=== PATIENT | female | born 1960 | race Caucasian/White ===

== ENCOUNTER → 2020-06-15 | Outpatient (CLI) | payer BC ==
[2020-06-15 22:30] LABS: Basophils # (A) 0.03 X 10*3/uL (0.00-0.10); Basophils % (A) 0.6 %; Eosinophils # (A) 0.08 X 10*3/uL (0.04-0.35); Eosinophils % (A) 1.6 %; HCT 41.3 % (37.2-46.3); HGB 12.8 g/dL (12.0-15.0); Lymphocytes # (A) 1.48 X 10*3/uL (0.90-5.00); Lymphocytes % (A) 30.4 %; MCH 28.6 pg (27.0-32.0); MCV 92.4 fL (80.0-97.0); Mean Platelet Volume 10.2 fL (9.5-12.2); Monocytes # (A) 0.51 X 10*3/uL (0.20-1.00); Monocytes % (A) 10.5 %; Neutrophils # (A) 2.76 X 10*3/uL (1.80-7.70); Neutrophils % (A) 56.7 %; Platelet Count 345 X 10*3/uL (140-440); RBC 4.47 X 10*6/uL (4.10-5.20); RDW 14.2 % (11.5-14.5); WBC 4.87 X 10*3/uL (4.50-10.00)
[2020-06-15 23:58] LABS: Erythrocyte Sedimentation Rate 33 mm/Hr (0-30)
[2020-06-16 01:52] LABS: African American GFR (CKD) 72.4 (60.0-200.0); C Reactive Protein 1.1 mg/dL (0.0-0.8); Non-African American GFR(CKD) 62.5 (60.0-200.0)
== END | disposition home or self-care (01) ==
LOC: LABWHC1 12:45
PROVIDERS: ATTEND Internal Medicine Rheumatology
DX: M05.79 Rheumatoid arthritis with rheumatoid factor of multiple sites without organ or systems involvement (principal)
CPT/HCPCS: 36415; 82565; 84450; 84460; 84520; 85025; 85652; 86140

== ENCOUNTER → 2020-06-23 | Outpatient (CLI) | payer BC ==
--- NOTE | 2020-06-23 17:47 | BD ---
EXAMINATION TYPE: Axial Bone Density DATE OF EXAM: 06/23/2020 COMPARISON: NONE CLINICAL HISTORY: 59 YR OLD FEMALE....ICD-10 CODE: Z78.0 POST MENOPAUSAL Height: 63 Weight: 230 FRAX RISK QUESTIONS: Current Tobacco Use: NOT TOBACCO, MARIJUANA RA RISK FACTORS HISTORY OF: Family History of Osteoporosis: UNKNOWN Postmenopausal woman: YES AT AGE 51 YRS OLD Hyperparathyroidism: NO Adrenal Insufficiency: NO MEDICATIONS: Additional Medications: XANAX, METFORMIN AND TRULICITY, REFLUX MEDS, STATINS FOR CHOLESTEROL, VIT D , CALCIUM Additional History: DIABETIC, REFLUX, CHOLESTEROL, RA EXAM MEASUREMENTS: Bone mineral densitometry was performed using the [employer]. Bone mineral density as measured about the Lumbar spine is: ----- L1-L4(G/cm2): 1.192 T Score Values are as follows: ----- L1: 0.3 ----- L2: 0.1 ----- L3: 0.4 ----- L4: -0.4 ----- L1-L4: 0.1 Bone mineral density BASELINE STUDY Bone mineral density about the R hip (g/cm2): 0.976 Bone mineral density about the L hip (g/cm2): 1.004 T Score values are as follows: -----R Neck: -0.8 -----L Neck: -0.7 -----R Total: -0.2 -----L Total: 0.0 Bone mineral density FIRST DEXA SCAN.....BASELINE STUDY FRAX%s: THERE IS A 7.1% CHANCE FOR A MAJOR OSTEOPOROTIC FX AND A 0.3% FOR HIPS.....PROBABILITY FO R FX IN 10 YRS TIME IMPRESSION: Normal (Values between +1 and -1 indicate normal bone mass). Consider repeating this study in 5 year s or sooner if there is some new clinical indication. NOTE: T-SCORE=SD OF THE YOUNG ADULT MEAN.
== END | disposition home or self-care (01) ==
LOC: RADBDWWP 12:48
PROVIDERS: ATTEND Family Medicine
DX: Z78.0 Asymptomatic menopausal state (principal)
CPT/HCPCS: 77080

== ENCOUNTER → 2023-05-31 | Day surgery (SDC) | payer BC ==
[2023-05-29 11:35] VITALS: BMI 36.7
[~2023-05-31] MED LIST: LACTATED RINGERS 1,000 ML IV ONE; LACTATED RINGERS 1,000 ML IV SCH; LIDOCAINE 1% (10MG/ML) FOR IV START INTRADERMA PRN; PROPOFOL 10 MG/ML 20 ML VIAL IV ONE
[2023-05-31 09:57] LABS: Glucose,Whole Blood 93 mg/dL (70-110)
[2023-05-31 10:01] VITALS: TEMP 97.8
--- NOTE | 2023-05-31 10:42 | P.PCN ---
Date of Procedure: 05/31/23 Procedure(s) Performed: BRIEF HISTORY: Patient is a 62-year-old pleasant white female scheduled for an elective colonoscopy as a part of evaluation of intermittent rectal bleeding for the last several months duration. PROCEDURE PERFORMED: Colonoscopy with biopsy. PREOPERATIVE DIAGNOSIS: intermittentrectal bleeding. IV sedation per Anesthesia. PROCEDURE: After informed consent was obtained, the patient, was brought into the endoscopy unit. IV sedation was administered by Anesthesia under continuous monitoring. Digital rectal examination was normal. Initially the Olympus CF-160 flexible video colonoscope was then inserted in the rectum, gradually advanced into the cecum without any difficulty. Careful examination was performed as the scope was gradually being withdrawn. Ileocecal valve and the appendiceal orifice were visualized and appeared normal. Prep was excellent. Mucosa of the cecum, ascending colon, transverse colon, descending colon, appeared normal. Scattered sigmoid diverticulosis seen. There was mild diverticular related colitis with mucosal erythema noted in the sigmoid colon extending f rom 20-30 cm from the anal verge and biopsies were done from this area. Rest of thesigmoid colon, and rectum appeared normal. Retroflexion was performed in the rectum and grade 2 internal hemorrhoidswere seen. The patient tolerated the procedure well. IMPRESSION: Grade 2 internal hemorrhoids Scattered sigmoid diverticulosis Mild sigmoid diverticular related colitis extending from 25-30 cm from the anal verge status post biopsy . RECOMMENDATIONS: Findings of this examination were discussed with the patient as well as a family.. She was advised to follow with the biopsy results. The meantime continue with osmotic laxatives and avoid straining and constipation. Recommend repeat colonoscopy in 10 years.
[2023-05-31 10:54] VITALS: RESP 16
[2023-05-31 11:00] LABS: Glucose,Whole Blood 83 mg/dL (70-110)
[2023-05-31 11:20] VITALS: BP 115/77; PULSE 70
== END ==
LOC: ORWHC2ENDO 09:27
PROVIDERS: ATTEND Internal Medicine Gastroenterology
DX: K57.30 Diverticulosis of large intestine without perforation or abscess without bleeding (principal); K64.1 Second degree hemorrhoids; K52.9 Noninfective gastroenteritis and colitis, unspecified; E11.9 Type 2 diabetes mellitus without complications; E03.9 Hypothyroidism, unspecified; F41.9 Anxiety disorder, unspecified; M79.7 Fibromyalgia; M06.9 Rheumatoid arthritis, unspecified; K21.9 Gastro-esophageal reflux disease without esophagitis; Z79.890 Hormone replacement therapy; Z79.899 Other long term (current) drug therapy
CPT/HCPCS: 88305; 45380; J2704